=== PATIENT | male | born 1965 | race Two or more races ===

== ENCOUNTER 2016-05-17 21:02 | Emergency (ER) | payer MEDICAID, OTHER ==
[2016-05-17] MEDS ORDERED: IOPAMIDOL 370 (76%) IV.SOLN 150 ML IV ONE (21:03)
[2016-05-17] MEDS ORDERED: KETOROLAC TROMETHAMINE 30 MG/ML 1 ML VIAL ONE (22:00)
[2016-05-17] MEDS ORDERED: ONDANSETRON 4 MG/2ML 2 ML VIAL ONE (22:00)
[2016-05-17] MEDS ORDERED: PANTOPRAZOLE SODIUM 40 MG VIAL IV ONE (22:00)
[2016-05-17] MEDS ORDERED: SODIUM CHLORIDE 0.9% 1,000 ML ONE ×2 (22:00→23:03)
[2016-05-17] MEDS ORDERED: MORPHINE SULFATE 4 MG/ML SYRINGE ONE (22:01)
[2016-05-17 22:12] LABS: ABSOLUTE NEUTROPHIL COUNT 4.8 K/mm3 (1.8-7.7); BASO % 0.4 % (0.2-1.0); EOS # 0.3 (0.0-0.5); EOS % 3.1 % (0.9-2.9); HEMATOCRIT 43.5 % (32.0-52.0); HEMOGLOBIN 14.5 gm/l (14.0-18.0); IMM NEUT% 0.2 % (0-1); LYMPH # 2.4 (1.0-4.8); LYMPH % 28.7 % (15-45); MEAN CELL VOLUME 89.3 fl (80.0-94.0); MEAN CORPUSCULAR HEMOGLOBIN 29.8 pg (27.0-31.0); MEAN CORPUSCULAR HGB CONC 33.3 g/dl (33.0-37.0); MEAN PLATELET VOLUME 10.4 fl (7.4-10.4); MONO # 0.7 (0.0-0.8); MONO % 8.8 % (4-12); NEUT % 58.8 % (43-75); PLATELET COUNT 104 K/mm3 (130-400); RED CELL DISTRIBUTION WIDTH 12.6 % (11.5-14.5)
[2016-05-17 22:13] LABS: SPECIFIC GRAVITY 1.025 (1.001-1.030); URINE BILIRUBIN NEGATIVE (NEGATIVE); URINE BLOOD NEGATIVE (NEGATIVE); URINE GLUCOSE (UA) NEGATIVE (NEGATIVE); URINE LEUKOCYTE ESTERASE NEGATIVE (NEGATIVE); URINE NITRITE NEGATIVE (NEGATIVE); URINE PROTEIN NEGATIVE (NEGATIVE); URINE UROBILINOGEN NORMAL (0-1 mg/dl)
[2016-05-17 22:14] LABS: URINE APPEARANCE CLEAR; URINE COLOR DARK YELLOW
[2016-05-17 22:24] LABS: ALB/GLOB RATIO 1.6 (>1.0); ALBUMIN 4.1 gm/dL (3.5-5.7)
[2016-05-17 23:28] LABS: AMPHETAMINES/METHAMPHETAMINES NEGATIVE (NEGATIVE); COCAINE NEGATIVE (NEGATIVE); MARIJUANA POSITIVE (NEGATIVE); METHADONE NEGATIVE (NEGATIVE); OPIATES NEGATIVE (NEGATIVE); TRICYCLIC ANTIDEPRESSANTS NEGATIVE (NEGATIVE)
[2016-05-17] MEDS ORDERED: HYDROCODONE/ACETAMINOPHEN 5/325MG TABLET ONE (23:42)
[2016-05-17] MEDS ORDERED: DIPHENHYDRAMINE HCL 50 MG/1 ML VIAL ONE (23:45)
--- NOTE | 2016-05-18 09:01 | CT ---
EXAMINATION: Contrast enhanced CT scan of the abdomen and pelvis. CLINICAL INDICATION: Abdominal pain and bloating. Abnormal stools. COMPARISON: None TECHNIQUE: Oral contrast: None Following uneventful administration of 125 mL of Isovue 370, intravenously axial images were acquired from just above the domes of the diaphragm to the iliac crest. A CT scan of the pelvis was also obtained from the iliac crest to the initial tuberosities. Stacked axial, sagittal, and coronal images were reviewed. Findings: Abdomen CT: (Contrast-enhanced): There is mild bibasilar atelectasis. No worrisome mass or consolidation is identified. There is an 8 mm low-attenuation lesion within the posterior segment of the right lobe. This may reflect a hepatic cyst. Also within the posterior segment of the right lobe inferiorly there is a 17 mm area of apparent relative increased attenuation. This may reflect a region of focal fatty sparing versus hemangioma. Correlation with hepatic sonography is recommended. The gallbladder is within normal limits. There is no evidence of biliary obstruction. The spleen size and attenuation are within normal limits. The pancreas is normal in size and contours. No inflammatory stranding is identified. The pancreatic duct is unremarkable. The adrenals are unremarkable. Kidneys are without solid mass or hydronephrosis. There is a low-attenuation 7 mm cortical lesion in the posterior lower pole the right kidney. The abdominal aorta unremarkable. There is no retroperitoneal adenopathy identified. The stomach is unremarkable. The visualized segments of small and large bowel are within normal limits. The osseous structures exhibit no displaced fracture. No lytic or blastic lesions are identified. Pelvic CT: (Contrast -enhanced): The distal ureters and bladder are unremarkable. The prostate is normal in size. No adenopathy is identified. The distal abdominal aorta and iliac vessels are within normal limits. There is moderate stool in the distribution of the colon. Diverticulosis is noted. No inflammatory stranding or obstruction is identified. The appendix is unremarkable. No displaced fractures are identified. There are no gross osteolytic or blastic lesions. The overlying soft tissues are unremarkable. IMPRESSION: 1. No evidence of acute inflammatory or significant obstructive process involving the abdomen and pelvis. 2. Constipation. 3. Lesions within the right lobe of liver. Correlation with hepatic sonography should be considered. 4. Minimal atherosclerosis. 5. Right renal cyst. 6. Diverticulosis without evidence of acute diverticulitis. 7. Mild spondylosis changes of the lumbar spine. Findings were communicated by [facility] to the emergency department at: 2334 hours 05/17/2016
== END 2016-05-18 | disposition home or self-care (01) ==
LOC: ED 21:02
DX: R10.13 Epigastric pain (principal); K57.90 Diverticulosis of intestine, part unspecified, without perforation or abscess without bleeding
CPT/HCPCS: 83690; 82150; 85025; 80305; 80053; 81003; 84484; 74177; 96375; 99283; 93005; J1200; J2270; C9113; J1885; J2405; J7030 ×2; A9270; Q9967